=== PATIENT | female | born 1955 | race American Indian/Alaskan Native ===

== ENCOUNTER 2016-05-09 15:06 | Emergency (ER) | payer MEDICARE ==
[2016-05-09] MEDS ORDERED: ZOFRAN ODT PO ONE (15:35)
[2016-05-09 16:12] LABS: Mean Corpuscular HGB Conc 30 % (30-34); Mean Corpuscular Volume 82 fl (79-97); Platelet Count 377 K/mm3 (140-440); Red Blood Count 4.39 M/mm3 (3.65-5.03); White Blood Count 7.7 K/mm3 (4.5-11.0)
[2016-05-09 16:28] LABS: Hemoglobin 10.9 gm/dl (10.1-14.3); Mean Corpuscular Hemoglobin 25 pg (28-32)
[2016-05-09 16:31] LABS: Alanine Aminotransferase 12 units/L (7-56); Albumin 3.8 g/dL (3.9-5); Albumin/Globulin Ratio 1.2 %; Alkaline Phosphatase 67 units/L (35-129); Anion Gap 20 mmol/L; BUN/Creatinine Ratio 25.71; Bilirubin,Total 0.2 mg/dL (0.1-1.2); Blood Urea Nitrogen 18 mg/dL (7-17); Carbon Dioxide 17 mmol/L (22-30); Glucose 153 mg/dL (65-100); Potassium 3.8 mmol/L (3.6-5.0); Sodium 144 mmol/L (137-145); Total Protein 6.9 g/dL (6.3-8.2)
[2016-05-09 17:01] LABS: Anisocytosis 1+; Basophils % (Manual) 0 % (0.0-1.8); Blastocytes % (Manual) 0 %; Eosinophils % (Manual) 0 % (0.0-4.3)
[2016-05-09 17:02] LABS: Hypochromasia 1+; Large Platelets Few; Ovalocytes 1+; Poikilocytosis Few
[2016-05-09 17:03] LABS: Diff Status Complete; Platelet Estimate Cons
[2016-05-09] MEDS ORDERED: ZOFRAN IV ONE (22:11)
[2016-05-09] MEDS ORDERED: SUBLIMAZE IV ONE (22:11)
[2016-05-09] MEDS ORDERED: NACL 0.9% 1000 ML 1,000 ML IV ONE (22:11)
--- NOTE | 2016-05-09 22:17 | Emergency Department Report ---
HPI - General Chief Complaint: Chest Pain Time Seen by Provider: 05/09/16 22:09 - HPI HPI: Room 7 The patient is a 60-year-old female presenting with a chief complaint of abdominal pain. The patient states 2 to 3 days ago she developed diffuse abdominal pain. The patient states she "started feeling on." Patient states she then lost her appetite and yesterday developed nausea and vomiting. The patient states she then decided to come to the ED. The patient states she's been suffering with bouts of the same for the past 2 years and is being followed by [facility]. Patient states she is unaware of her diagnosis. Patient denies any history of fever the patient states she only has chest pain after vomiting. The patient currently gives her pain a score of 9/10 Location: Abdomen Duration: 2-3 days Quality: Pain Severity: 9/10 Modifying factors: [see above] Context: [see above] Mode of transportation: [not driving] ED Past Medical Hx - Past Medical History Previous Medical History?: Yes Hx Hypertension: Yes Hx GERD: Yes - Surgical History Past Surgical History?: Yes Hx Cholecystectomy: Yes Additional Surgical History: right knee surgery, thyroidectomy - Family History Family history: no significant - Social History Smoking Status: Current Every Day Smoker (1/3 pack per day) Substance Use Type: None - Medications Home Medications: Home Medications Medication Instructions Recorded Confirmed Last Taken Type HYDROcodone/APAP 5-325 [[place] 1 each PO Q6HR PRN #10 tablet 09/18/13 05/09/16 2 Days Ago Rx 5/325] Promethazine [Phenergan] 25 mg PO Q6H PRN #20 tablet 09/18/13 05/09/16 2 Days Ago Rx Promethazine [Phenergan] 25 mg OK Q6HR PRN #10 supp.rect 09/18/13 05/09/16 2 Days Ago Rx ALPRAZolam [Xanax TAB] 0.5 mg PO QID 05/09/16 05/09/16 2 Days Ago History Amitriptyline 25 mg PO QPM 05/09/16 05/09/16 2 Days Ago History Cetirizine HCl [Allergy] 10 mg PO QDAY 05/09/16 05/09/16 2 Days Ago History Dicyclomine [Bentyl] 10 mg PO TID 05/09/16 05/09/16 2 Days Ago History Duloxetine HCl [DULoxetine] 120 mg PO QDAY 05/09/16 05/09/16 2 Days Ago History Tizanidine HCl [tiZANidine] 4 mg PO BID 05/09/16 05/09/16 2 Days Ago History Topiramate [Topamax] 200 mg PO BID 05/09/16 05/09/16 2 Days Ago History buPROPion [Wellbutrin] 100 mg PO QAM 05/09/16 05/09/16 2 Days Ago History traMADol [Ultram 50 MG tab] 50 mg PO QID PRN 05/09/16 05/09/16 2 Days Ago History Ondansetron [Zofran TAB] 8 mg PO Q8HR PRN #20 tablet 05/10/16 Unknown Rx Promethazine [Phenergan TAB] 25 mg PO Q6HR PRN #20 tab 05/10/16 Unknown Rx Promethazine [Phenergan] 25 mg [place] Q6HR PRN #20 supp.rect 05/10/16 Unknown Rx ED Review of Systems ROS: Stated complaint: UPSET STOMACH/SEVERE EMESIS Other details as noted in HPI Comment: All other systems reviewed and negative Constitutional: denies: chills, fever Eyes: denies: eye pain, eye discharge, vision change ENT: denies: ear pain, throat pain Respiratory: denies: cough, shortness of breath, wheezing Cardiovascular: denies: chest pain, palpitations Endocrine: no symptoms reported Gastrointestinal: abdominal pain, nausea, vomiting Genitourinary: denies: urgency, dysuria, discharge Musculoskeletal: denies: back pain, joint swelling, arthralgia Skin: denies: rash, lesions Neurological: denies: headache, weakness, paresthesias Psychiatric: denies: anxiety, depression Hematological/Lymphatic: denies: easy bleeding, easy bruising Physical Exam - Physical Exam Vital Signs: Vital Signs 05/09/16 05/09/16 05/09/16 15:24 16:36 18:32 Temperature 97.5 F L 98.3 F Pulse Rate 94 H 89 92 H Respiratory 22 19 16 Rate Blood Pressure 118/76 Blood Pressure 132/85 147/93 [Left] O2 Sat by Pulse 97 100 97 Oximetry Physical Exam: GENERAL: The patient is well-developed well-nourished female lying on stretcher not appearing to be in acute distress. [] HEENT: Normocephalic. Atraumatic. Extraocular motions are intact. NECK: Supple. Trachea midline CHEST/LUNGS: Clear to auscultation. There is no respiratory distress noted. HEART/CARDIOVASCULAR: Regular. There is no tachycardia. There is no gallop rub or murmur. ABDOMEN: Abdomen is soft, slightly tender to palpation. Patient has normal bowel sounds. There is no abdominal distention. SKIN: There is no rash. There is no edema. There is no diaphoresis. NEURO: The patient is awake, alert, and oriented. The patient is cooperative. The patient has normal speech MUSCULOSKELETAL: There is no evidence of acute injury. ED Course Vital Signs 05/09/16 05/09/16 05/09/16 15:24 16:36 18:32 Temperature 97.5 F L 98.3 F Pulse Rate 94 H 89 92 H Respiratory 22 19 16 Rate Blood Pressure 118/76 Blood Pressure 132/85 147/93 [Left] O2 Sat by Pulse 97 100 97 Oximetry - Reevaluation(s) Reevaluation #1: 05/10/16 01:57 Patient tolerating PO ED Medical Decision Making - Lab Data Result diagrams: 05/09/16 15:49 05/09/16 15:49 Laboratory Tests 05/09/16 05/09/16 05/09/16 00:39 15:49 15:49 WBC 7.7 RBC 4.39 Hgb 10.9 Hct 36.0 MCV 82 MCH 25 L MCHC 30 RDW 23.0 H Plt Count 377 Add Manual Diff Complete Total Counted 100 Seg Neuts % (Manual) 82.0 H Band Neutrophils % 1.0 Lymphocytes % (Manual) 16.0 Reactive Lymphs % (Man) 0 Monocytes % (Manual) 1.0 Eosinophils % (Manual) 0 Basophils % (Manual) 0 Metamyelocytes % 0 Myelocytes % 0 Promyelocytes % 0 Blast Cells % 0 Nucleated RBC % Not Reportable Seg Neutrophils # Man 6.3 Band Neutrophils # 0.1 Lymphocytes # (Manual) 1.2 Abs React Lymphs (Man) 0.0 Monocytes # (Manual) 0.1 Eosinophils # (Manual) 0.0 Basophils # (Manual) 0.0 Metamyelocytes # 0.0 Myelocytes # 0.0 Promyelocytes # 0.0 Blast Cells # 0.0 WBC Morphology Not Reportable Hypersegmented Neuts Not Reportable Hyposegmented Neuts Not Reportable Hypogranular Neuts Not Reportable Smudge Cells Not Reportable Toxic Granulation Not Reportable Toxic Vacuolation Not Reportable Dohle Bodies Not Reportable Pelger-Huet Anomaly Not Reportable Linda Rods Not Reportable Platelet Estimate Cons Clumped Platelets Not Reportable Plt Clumps, EDTA Not Reportable Large Platelets Few Giant Platelets Not Reportable Platelet Satelliting Not Reportable Plt Morphology Comment Not Reportable RBC Morphology Not Reportable Dimorphic RBCs Not Reportable Polychromasia Not Reportable Hypochromasia 1+ Poikilocytosis Few Anisocytosis 1+ Microcytosis Not Reportable Macrocytosis Not Reportable Spherocytes Not Reportable Pappenheimer Bodies Not Reportable Sickle Cells Not Reportable Target Cells Not Reportable Tear Drop Cells Not Reportable Ovalocytes 1+ Helmet Cells Not Reportable Nix-[place] Bodies Not Reportable [place] Not Reportable Deborah Cells Not Reportable Bite Cells Not Reportable Crenated Cell Not Reportable Elliptocytes Not Reportable Acanthocytes (Spur) Not Reportable Rouleaux Not Reportable Hemoglobin C Crystals Not Reportable Schistocytes Not Reportable Malaria parasites Not Reportable Duncan Bodies Not Reportable Hem Pathologist Commnt No Sodium Potassium Chloride Carbon Dioxide Anion Gap BUN Creatinine Estimated GFR BUN/Creatinine Ratio Glucose Calcium Total Bilirubin AST ALT Alkaline Phosphatase Troponin T < 0.010 Total Protein Albumin Albumin/Globulin Ratio Lipase Urine Color Yellow Urine Turbidity Clear Urine pH 8.0 H Urine Protein <15 mg/dl Urine Glucose (UA) Neg Urine Ketones 20 Urine Blood Neg Urine Nitrite Neg Urine Bilirubin Neg Urine Urobilinogen < 2.0 Ur Leukocyte Esterase Neg Urine WBC (Auto) 1.0 Urine RBC (Auto) 13.0 U Epithel Cells (Auto) 11.0 Amorphous Crystals 1+ Hyaline Casts 2 Urine Mucus 1+ 05/09/16 05/09/16 05/09/16 15:49 15:49 19:16 WBC RBC Hgb Hct MCV MCH MCHC RDW Plt Count Add Manual Diff Total Counted Seg Neuts % (Manual) Band Neutrophils % Lymphocytes % (Manual) Reactive Lymphs % (Man) Monocytes % (Manual) Eosinophils % (Manual) Basophils % (Manual) Metamyelocytes % Myelocytes % Promyelocytes % Blast Cells % Nucleated RBC % Seg Neutrophils # Man Band Neutrophils # Lymphocytes # (Manual) Abs React Lymphs (Man) Monocytes # (Manual) Eosinophils # (Manual) Basophils # (Manual) Metamyelocytes # Myelocytes # Promyelocytes # Blast Cells # WBC Morphology Hypersegmented Neuts Hyposegmented Neuts Hypogranular Neuts Smudge Cells Toxic Granulation Toxic Vacuolation Dohle Bodies Pelger-Huet Anomaly Linda Rods Platelet Estimate Clumped Platelets Plt Clumps, EDTA Large Platelets Giant Platelets Platelet Satelliting Plt Morphology Comment RBC Morphology Dimorphic RBCs Polychromasia Hypochromasia Poikilocytosis Anisocytosis Microcytosis Macrocytosis Spherocytes Pappenheimer Bodies Sickle Cells Target Cells Tear Drop Cells Ovalocytes Helmet Cells Nix-[place] Bodies [place] Deborah Cells Bite Cells Crenated Cell Elliptocytes Acanthocytes (Spur) Rouleaux Hemoglobin C Crystals Schistocytes Malaria parasites Duncan Bodies Hem Pathologist Commnt Sodium 144 Potassium 3.8 Chloride 111.0 H Carbon Dioxide 17 L Anion Gap 20 BUN 18 H Creatinine 0.7 Estimated GFR > 60 BUN/Creatinine Ratio 25.71 Glucose 153 H Calcium 9.0 Total Bilirubin 0.2 AST 12 ALT 12 Alkaline Phosphatase 67 Troponin T < 0.010 Total Protein 6.9 Albumin 3.8 L Albumin/Globulin Ratio 1.2 Lipase 14 Urine Color Urine Turbidity Urine pH Urine Protein Urine Glucose (UA) Urine Ketones Urine Blood Urine Nitrite Urine Bilirubin Urine Urobilinogen Ur Leukocyte Esterase Urine WBC (Auto) Urine RBC (Auto) U Epithel Cells (Auto) Amorphous Crystals Hyaline Casts Urine Mucus 05/09/16 21:40 WBC RBC Hgb Hct MCV MCH MCHC RDW Plt Count Add Manual Diff Total Counted Seg Neuts % (Manual) Band Neutrophils % Lymphocytes % (Manual) Reactive Lymphs % (Man) Monocytes % (Manual) Eosinophils % (Manual) Basophils % (Manual) Metamyelocytes % Myelocytes % Promyelocytes % Blast Cells % Nucleated RBC % Seg Neutrophils # Man Band Neutrophils # Lymphocytes # (Manual) Abs React Lymphs (Man) Monocytes # (Manual) Eosinophils # (Manual) Basophils # (Manual) Metamyelocytes # Myelocytes # Promyelocytes # Blast Cells # WBC Morphology Hypersegmented Neuts Hyposegmented Neuts Hypogranular Neuts Smudge Cells Toxic Granulation Toxic Vacuolation Dohle Bodies Pelger-Huet Anomaly Linda Rods Platelet Estimate Clumped Platelets Plt Clumps, EDTA Large Platelets Giant Platelets Platelet Satelliting Plt Morphology Comment RBC Morphology Dimorphic RBCs Polychromasia Hypochromasia Poikilocytosis Anisocytosis Microcytosis Macrocytosis Spherocytes Pappenheimer Bodies Sickle Cells Target Cells Tear Drop Cells Ovalocytes Helmet Cells Nix-[place] Bodies [place] Cells Bite Cells Crenated Cell Elliptocytes Acanthocytes (Spur) Rouleaux Hemoglobin C Crystals Schistocytes Malaria parasites Duncan Bodies Hem Pathologist Commnt Sodium Potassium Chloride Carbon Dioxide Anion Gap BUN Creatinine Estimated GFR BUN/Creatinine Ratio Glucose Calcium Total Bilirubin AST ALT Alkaline Phosphatase Troponin T < 0.010 Total Protein Albumin Albumin/Globulin Ratio Lipase Urine Color Urine Turbidity Urine pH Urine Protein Urine Glucose (UA) Urine Ketones Urine Blood Urine Nitrite Urine Bilirubin Urine Urobilinogen Ur Leukocyte Esterase Urine WBC (Auto) Urine RBC (Auto) U Epithel Cells (Auto) Amorphous Crystals Hyaline Casts Urine Mucus - EKG Data -: EKG Interpreted by Me EKG shows normal: sinus rhythm Rate: normal - EKG Data When compared to previous EKG there are: no significant change Interpretation: unchanged when compared t (09/18/2013) - Radiology Data Radiology results: report reviewed (CT abdomen and pelvis), image reviewed (CT abdomen and pelvis) CT abdomen and pelvis (read by radiologist)-there is no evidence of intestinal urinary tract obstruction. No ileus or enteritis. The appendix is normal. Previous cholecystectomy. Mild dilation of the central biliary ductal system. No stones are identified. - Differential Diagnosis gastroparesis, small bowel obstruction, enteritis, GERD Critical care attestation.: If time is entered above; I have spent that time in minutes in the direct care of this critically ill patient, excluding procedure time. ED Disposition Clinical Impression: Abdominal pain, Nausea & vomiting Disposition: DISCHARGED TO HOME OR SELFCARE Is pt being admited?: No Does the pt Need Aspirin: No Condition: Stable Instructions: Acute Nausea and Vomiting (ED), Abdominal Pain (ED) Additional Instructions: Return to the emergency department immediately should you develop worsening symptoms, fever, inability to tolerate food or liquid or any other concerns. Prescriptions: Ondansetron [Zofran TAB] 8 mg PO Q8HR PRN #20 tablet PRN Reason: Nausea Promethazine [Phenergan TAB] 25 mg PO Q6HR PRN #20 tab PRN Reason: Nausea Promethazine [Phenergan] 25 mg [place] Q6HR PRN #20 supp.rect PRN Reason: Vomiting Referrals: PRIMARY CARE, [Primary Care Provider] - 3-5 Days your, [facility] [Other] - MARYELLEN FLETCHER MD [Staff Physician] - TER[facility] (Dr. Pascal is a [facility]. Please follow up with him for further evaluation if you do not already have a [facility].) Time of Disposition: 02:00
--- NOTE | 2016-05-09 23:32 | Cat Scan Report ---
FINAL REPORT PROCEDURE: CT ABDOMEN PELVIS W CON TECHNIQUE: Computerized axial tomography of the abdomen and pelvis was performed after the IV injection of iodinated nonionic contrast. HISTORY: diffuse abdominal pain nausea vomiting COMPARISON: No prior studies are available for comparison. FINDINGS: Visualized lower thorax: No significant abnormality. Liver: Normal size and attenuation. Spleen: Normal size and attenuation. Gallbladder and biliary system: The gallbladder is absent. There is slight dilatation of the central biliary ductal system. No stones are identified.. Pancreas: Normal. Adrenals: Normal. Kidneys: Kidneys have a normal size. No hydronephrosis. No renal stones or masses.. GI tract: The stomach is normal. The small bowel has a normal caliber. No obstruction, ileus or enteritis. The cecum, appendix and colon are normal.. Lymph nodes and mesentery: Normal. Vasculature: Moderate atherosclerosis of the aorta and branching vessels. Bladder: Normal. Reproductive organs: The uterus has numerous small areas of mixed attenuation, fibroids are suspected. No adnexal masses.. Peritoneum: No free fluid. Musculoskeletal structures: No significant abnormality. Other: None. IMPRESSION: There is no evidence of intestinal urinary tract obstruction. No ileus or enteritis. The appendix is normal. Previous cholecystectomy. Mild dilatation of the central biliary ductal system. No stones are identified.
[2016-05-10] MEDS ORDERED: REGLAN IV ONE (00:51)
[2016-05-10] MEDS ORDERED: SUBLIMAZE IV ONE (00:51)
[2016-05-10 01:27] LABS: Bilirubin,Urine NEG (Negative); Blood,Urine NEG (Negative); Ketones,Urine 20 mg/dL (Negative); Leukocyte Esterase,Urine NEG (Negative); Mucus,Urine 1+ /HPF; Nitrite,Urine NEG (Negative); Protein,Urine <15 mg/dL mg/dL (Negative); Urobilinogen,Urine < 2.0 mg/dL (<2.0)
[2016-05-10 02:26] VITALS: BP 166/104
== END 2016-05-10 02:30 | disposition home or self-care (01) ==
LOC: ED 15:06
DX: R10.84 Generalized abdominal pain (principal); R11.2 Nausea with vomiting, unspecified; I10 Essential (primary) hypertension; K21.9 Gastro-esophageal reflux disease without esophagitis; F17.200 Nicotine dependence, unspecified, uncomplicated
CPT/HCPCS: 36415; 74177; 80053; 81001; 82962; 83690; 84484; 85007; 85025; 93005; 93010; 96361; 96374; 96375; 96376; 99285; J2405; J2765; J3010; J7030; Q9967; Q0162